=== PATIENT | female | born 1995 | race American Indian/Alaskan Native ===

== ENCOUNTER 2021-01-03 19:23 | Outpatient (CLI) | payer BC, MEDICAID ==
[2021-01-03 20:22] VITALS: BP 121/77
[2021-01-03 22:30] LABS: Bacteria,Urine 1+ /HPF (Negative); Bilirubin,Urine NEG (Negative); Blood,Urine NEG (Negative); Color,Urine Yellow (Yellow); Mucus,Urine 3+ /HPF; Protein,Urine <15 mg/dL mg/dL (Negative); Urobilinogen,Urine < 2.0 mg/dL (<2.0)
== END 2021-01-03 23:11 | disposition home or self-care (01) ==
LOC: TRG 19:23 → APU 19:32 → TRG 23:10
PROVIDERS: ATTEND Student in an Organized Health Care Education/Training Program
DX: Z34.93 Encounter for supervision of normal pregnancy, unspecified, third trimester (principal); Z3A.38 38 weeks gestation of pregnancy
CPT/HCPCS: 59025; 81001

== ENCOUNTER 2021-01-04 20:49 | Inpatient (IN) | payer MEDICAID ==
[2021-01-04] MEDS ORDERED: CARBOPROST TROMETHAMINE 250 MCG/1 ML INJ IM PRN (21:30)
[2021-01-04] MEDS ORDERED: MINERAL OIL 30 ML ORAL LIQD PO PRN (21:30)
[2021-01-04] MEDS ORDERED: LACTATED RINGERS 1,000 ML IV SCH (21:30)
[2021-01-04] MEDS ORDERED: ePHEDrine SULFATE 50 MG/1 ML INJ IV PRN (21:30)
[2021-01-04] MEDS ORDERED: TERBUTALINE 1 MG/1 ML INJ SUB-Q PRN (21:30)
[2021-01-04] MEDS ORDERED: LIDOCAINE (2%) 20 MG/1 ML VIAL 20 ML MDV INFILTRATI ONE (21:30)
[2021-01-04] MEDS ORDERED: LOPERAMIDE 2 MG CAP PO PRN (21:30)
[2021-01-04] MEDS ORDERED: AMPICILLIN/NS 2 GM/100 ML 2 GM/100 ML BAG IV ONE (21:30)
[2021-01-04] MEDS ORDERED: OXYTOCIN 10 UNIT/1 ML INJ IM PRN (21:30)
[2021-01-04] MEDS ORDERED: METHYLERGONOVINE MALEATE 0.2 MG/ML VIAL IM PRN (21:30)
[2021-01-04] MEDS ORDERED: ACETAMINOPHEN 325 MG TAB PO PRN (21:30)
[2021-01-04] MEDS ORDERED: BUTORPHANOL 2 MG/1 ML INJ IV PRN (21:30)
[2021-01-04] MEDS ORDERED: PROMETHAZINE 25 MG TAB PO PRN (21:30)
[2021-01-04] MEDS ORDERED: fentaNYL 100 MCG/2 ML INJ IV PRN (21:30)
[2021-01-04] MEDS ORDERED: NALOXONE 0.4 MG/1 ML INJ IV PRN (21:30)
[2021-01-04] MEDS ORDERED: miSOPROStol 200 MCG TAB PR PRN (21:30)
[2021-01-04] MEDS ORDERED: ONDANSETRON 4 MG/2 ML INJ IV PRN (21:30)
--- NOTE | 2021-01-04 21:44 | History and Physical Report ---
History of Present Illness Date of examination: 01/04/21 Date of admission: 01/04/21 Chief complaint: I've been having contractions since yesterday and I started bleeding today. History of present illness: Pt presents to triage with c/o contractions and vaginal bleeding. States that she was in triage on the evening of 01/03, was 1 cm and sent home. Today the contractions became stronger with vaginal bleeding. EDC Confirmation: 01/15/2021 Gestational Age: 38.3 weeks on admission Past History : 1 Term Births: 0 Premature Births: 0 Living Children: 1 Para: 0 Mult. Births: 0 Prev : 0 Aborta: 0 Elect. Ab: 0 Spont. Ab: 0 Ectopics: 0 Past Medical History: Reviewed history and no changes required: Negative Past Medical History Past Surgical History: Reviewed history and no changes required: negative Past Medical History Anesthesia Complications: negative Anemia: negative Autoimmune Disorder: negative Bleeding Disorder: negative Blood Transfusions: negative Breast Disease: negative Diabetes: negative Heart Disease: negative Hypertension: negative Hepatitis/Liver Disease: negative Kidney Disease/UTI: negative Neurologic/Epilepsy/Migraines: negative Phlebitis/Varicosities: negative Psychiatric: negative Pulmonary Disease/Asthma: negative Thyroid Disease: negative Hospitalizations: negative Surgery (Non-wildlife management professor): negative Abnormal PAP: negative ULISES Exposure: negative Infertility: negative Uterine Anomaly: negative Uterine Surgery (not C/S): negative Other Gynecologic Problems: negative Family Hx: None Social Hx: Single FOC: somewhat supportive Infection History Hx of STD: chlamydia HIV Risk Eval: no Hepatitis B Risk Eval: low risk Personal hx. of genital herpes: no Partner hx. of genital herpes: no Rash, Viral, or Febrile illness since last LMP? no Varicella/Chicken Pox Status: No Genetic History Congenital Heart Defect: Mom: no Dad: no Tatiana Disease: Mom: no Dad: no Thalassemia Mom: no Dad: no Neural Tube Defect Mom: no Dad: no Down's Syndrome Mom: no Dad: no Jose-Sachs Mom: no Dad: no Sickle Cell Disease/Trait Mom: no Dad: no Hemophilia Mom: no Dad: no Muscular Dystrophy Mom: no Dad: no Cystic Fibrosis Mom: no Dad: no [place] Chorea Mom: no Dad: no Mental Retardation Mom: no Dad: no Fragile X Mom: no Dad: no Other Genetic/Chromosomal Disorder Mom: no Dad: no Child w/other defect Mom: no Dad: no Enviromental Exposures Xray Exposure: no Medication, drug, or alcohol use since LMP: no Chemical/Other Exposure: no Exposure to Cat Liter: no Hx of Parvovirus (Fifth Disease): no Occupational Exposure to Children: none Active Medications (reviewed today): None Current Allergies (reviewed today): No known allergies Past History Past Medical History: no pertinent history Past Surgical History: no surgical history Family/Genetic History: none Social history: no significant social history - Obstetrical History Expected Date of Delivery: 01/15/21 Actual Gestation: 38 Week(s) 4 Day(s) : 1 Para: 0 Hx # Term Pregnancies: 0 Number of Pregnancies: 0 Spontaneous Abortions: 0 Induced : 0 Number of Living Children: 0 Medications and Allergies Allergies Allergy/AdvReac Type Severity Reaction Status Date / Time No Known Allergies Allergy Verified 01/04/21 21:40 Home Medications Medication Instructions Recorded Confirmed Last Taken Type Ferrous Sulfate [Feosol 325 MG tab] 325 mg PO BID #60 tablet 01/05/21 Unknown Rx Ibuprofen [Motrin] 800 mg PO TID PRN #30 tablet 01/05/21 Unknown Rx Lidocain2.5%/Prilocai2.5% [Emla] 5 gm TP ONCE #1 tube 01/05/21 Unknown Rx oxyCODONE /ACETAMINOPHEN [Percocet 1 - 2 tab PO Q6HR PRN #20 tablet 01/05/21 Unknown Rx 5/325 mg] Active Meds: Active Medications Acetaminophen (Acetaminophen 325 Mg Tab) 1,000 mg PO Q6H PRN PRN Reason: Pain, Mild (1-3) Butorphanol Tartrate (Butorphanol 2 Mg/1 Ml Inj) 1 mg IV Q2H PRN PRN Reason: Pain, Moderate(4-6) LABOR PAIN Carboprost Tromethamine (Carboprost Tromethamine 250 Mcg/1 Ml Inj) 250 mcg IM ONCE PRN PRN Reason: Uterine Bleeding Ephedrine Sulfate (Ephedrine Sulfate 50 Mg/1 Ml Inj) 10 mg IV Q2M PRN PRN Reason: Hypotension Fentanyl (Fentanyl 100 Mcg/2 Ml Inj) 100 mcg IV Q2H PRN PRN Reason: Pain,Severe (7-10) LABOR PAIN Oxytocin/Sodium Chloride (Pitocin/Ns 30 Unit/500ml) 30 units in 500 mls @ 2 mls/hr IV TITR LEANDRO; Protocol Lactated Ringer's (Lactated Ringers) 1,000 mls @ 125 mls/hr IV DIRECT LEANDRO Oxytocin/Sodium Chloride (Pitocin/Ns 30 Unit/500ml) 30 units in 500 mls @ 40 mls/hr IV TITR LEANDRO; Protocol Ampicillin Sodium (Ampicillin/Ns 2 Gm/100 Ml) 2 gm in 100 mls @ 100 mls/hr IV ONCE ONE; Protocol Stop: 01/04/21 22:29 Lidocaine (Lidocaine (2%) 20 Mg/1 Ml Vial 20 Ml Mdv) 20 ml INFILTRATI ONCE ONE Stop: 01/04/21 21:31 Loperamide HCl (Loperamide 2 Mg Cap) 2 mg PO ONCE PRN PRN Reason: give with Hemabate Methylergonovine Maleate (Methylergonovine Maleate 0.2 Mg/Ml Vial) 0.2 mg IM ONCE PRN PRN Reason: Uterine Bleeding Mineral Oil (Mineral Oil 30 Ml Oral Liqd) 30 ml PO QHS PRN PRN Reason: Constipation Misoprostol (Misoprostol 200 Mcg Tab) 800 mcg AL ONCE PRN PRN Reason: Uterine Bleeding Naloxone HCl (Naloxone 0.4 Mg/1 Ml Inj) 0.1 mg IV Q2MIN PRN PRN Reason: Res Rate </= 8 or 02 SAT < 92% Ondansetron HCl (Ondansetron 4 Mg/2 Ml Inj) 4 mg IV Q8H PRN PRN Reason: Nausea And Vomiting Oxytocin (Oxytocin 10 Unit/1 Ml Inj) 10 unit IM ONCE PRN PRN Reason: Uterine Bleeding Promethazine HCl (Promethazine 25 Mg Tab) 25 mg PO Q6H PRN PRN Reason: Nausea And Vomiting Terbutaline Sulfate (Terbutaline 1 Mg/1 Ml Inj) 0.25 mg SUB-Q ONCE PRN PRN Reason: Hyperstimulation/Hypertonicity Review of Systems All systems: negative - Vital Signs Vital signs: Vital Signs Pulse BP 97 H 126/80 01/04/21 21:08 01/04/21 21:08 Temp Pulse Resp BP Pulse Ox 97.9 F 99 H 126/80 98 01/04/21 21:09 01/04/21 21:36 01/04/21 21:09 01/04/21 21:36 Multiple decelerations noted in triage down into the 60 to low 100's with contractions. There was recovery to the 160's, but with minimal variability. Pt states that she feels dehydrated. When asked about last eating and drinking, patient states "awhile ago". IV fluid bolus ordered. Will continue to monitor heart rate through EFM. Informed patient and her mother, if heart rate decelerations continue, will consult with Dr. Mccarthy and have to proceed with a . We also discussed that her progress in labor would be monitor closely. Pt and her mother verbalized understanding. - Physical Exam Breasts: Positive: deferred Cardiovascular: Regular rate Lungs: Positive: Normal air movement Abdomen: Positive: normal appearance Genitourinary (Female): Positive: normal external genitalia, normal perenium Vulva: both: normal Uterus: Positive: enlarged (Appropriate for 38.3 weeks gestation.) Extremities: Positive: normal - Obstetrical FHR: category 2 Uterine Contraction Monitor Mode: External Cervical Dilatation: 5 (Small amount of blood show noted on examing glove.) Cervical Effacement Percentage: 90 station: 1- Uterine Contraction Pattern: Regular Uterine Tone Measurement Phase: Resting Uterine Contraction Intensity: Moderate Results Result Diagrams: 01/04/21 21:35 All other labs normal. GBS POSITIVE O POSITIVE HIV NEGATIVE HEP B NEGATIVE RUBELLA IMMUNE RPR NON REACTIVE Assessment and Plan A: 25 y.o. @ 38.3 wks on admission, labor. Cervical exam 590/-1. Category 2 fet al monitor tracing. - Patient Problems (1) with 38 completed weeks gestation Current Visit: Yes Status: Acute Plan to address problem: Admit to labor and delivery. Initiate IV and draw admission labs. IV fluid bolus for epidural placement. Monitor patient's progress in labor. (2) GBS (group B streptococcus) infection Current Visit: Yes Status: Acute Plan to address problem: Antibiotics ordered during admission. (3) Non-reassuring electronic monitoring tracing Current Visit: Yes Status: Acute Plan to address problem: Will continue to monitor through EFM and response to labor.
[2021-01-04] MEDS ORDERED: LACTATED RINGERS 1,000 ML ONE ×2 (21:46→23:34)
[2021-01-04] MEDS ORDERED: OXYTOCIN DRIP 30 UNITS/500 ML BAG IV SCH ×2 (22:00)
[2021-01-04 22:17] LABS: Hemoglobin 10.7 gm/dl (10.1-14.3); Mean Corpuscular HGB Conc 34 % (30-34); Mean Corpuscular Volume 84 fl (79-97); Platelet Count 161 K/mm3 (140-440); Red Blood Count 3.81 M/mm3 (3.65-5.03); Red Cell Distribution Width 16.1 % (13.2-15.2)
[2021-01-04] MEDS ORDERED: BICITRA ORAL LIQD 30ML PO ONE (22:21)
[2021-01-04] MEDS ORDERED: METOCLOPRAMIDE 10 MG/2 ML INJ IV ONE (22:21)
[2021-01-04] MEDS ORDERED: FAMOTIDINE 20 MG/2 ML INJ IV ONE (22:21)
--- NOTE | 2021-01-04 22:43 | Anesthesia Day of Surgery ---
Anesthesia Day of Surgery - Day of Surgery Patient Examined: Yes Patient H&P Reviewed: Yes Patient is NPO: No ([id number]) Beta Blockers: No Cardiac Clearance: No Pulmonary Clearance: No Ezio's Test: Negative
--- NOTE | 2021-01-04 22:45 | Anesthesia Consultation ---
Anesthesia Consult and Med Hx Date of service: 01/04/21 - Airway Anesthetic Teeth Evaluation: Poor ROM Head & Neck: Adequate Mental/Hyoid Distance: Adequate Mallampati Class: Class II Intubation Access Assessment: Good - Pulmonary Exam CTA: Yes - Cardiac Exam Cardiac Exam: RRR - Pre-Operative Health Status ASA Pre-Surgery Classification: ASA3, Emergency Proposed Anesthetic Plan: General, Spinal - Pulmonary Hx Smoking: Yes (stop 38weeks ago) Hx Asthma: No Hx Respiratory Symptoms: No SOB: No COPD: No Home Oxygen Therapy: No Hx Pneumonia: No Hx Sleep Apnea: No - Cardiovascular System Hx Hypertension: No Hx Coronary Artery Disease: No Hx Heart Attack/AMI: No Hx Angina: No Hx Percutaneous Transluminal Coronary Angioplasty (PTCA): No Hx Cardia Arrhythmia: No Hx Pacemaker: No Hx Internal Defibrillator: No Hx Valvular Heart Disease: No Hx Heart Murmur: No Hx Peripheral Vascular Disease: No - Central Nervous System Hx Neuromuscular Disorder: No Hx Seizures: No CVA: No Hx Back Pain: Yes Hx Psychiatric Problems: No - Gastrointestinal Hx Ulcer: No Hx Gastroesophageal Reflux Disease: Yes - Endocrine Hx Renal Disease: No Hx End Stage Renal Disease: No Hx Cirrhosis: No Hx Liver Disease: No Hx Insulin Dependent Diabetes: No Hx Non-Insulin Dependent Diabetes: No Hx Thyroid Disease: No Hx Hypothyroidism: No Hx Hyperthyroidism: No - Hematic Hx Anemia: No Hx Sickle Cell Disease: No - Other Systems Hx Alcohol Use: No Hx Substance Use: No Hx Cancer: No Hx Obesity: Yes
[2021-01-04] MEDS ORDERED: ONDANSETRON 4 MG/2 ML INJ ONE ×2 (22:58)
[2021-01-04] MEDS ORDERED: ceFAZolin/Water 2 GM/20 ML 2 GM/20 ML SYRINGE IV NR (23:00)
[2021-01-04] MEDS ORDERED: SODIUM CHLORIDE 0.9% IRR 1,500 ML BOTTLE IR ONE (23:44)
[2021-01-04] MEDS ORDERED: WATER FOR IRRIG STERILE 1,500 ML BOTTLE IR ONE (23:44)
[2021-01-04] MEDS ORDERED: ceFAZolin/STERILE WATER 2 GM/20 ML SYRINGE IV ONE (23:44)
[2021-01-04] MEDS ORDERED: KETOROLAC 30 MG/1 ML INJ ONE (23:56)
[2021-01-04] MEDS ORDERED: BUPIVACAINE/PF (0.25%) 2.5 MG/ML 30 ML VIAL INFILTRATI ONE ×2 (23:57)
[2021-01-04] MEDS ORDERED: dexAMETHasone 20 MG/5 ML VIAL ONE (23:57)
--- NOTE | 2021-01-05 00:39 | Operative Report ---
Operative Report Operative Report: Date of procedure: January 04, 2021 Pre-operative diagnosis: Intrauterine at 38 weeks with active labor and repetitive deep variable decelerations with late component remote from vaginal delivery Post-operative diagnosis: Same plus meconium stained fluid and leiomyomata Procedure name(s): Primary low-transverse section Surgeon: Erick Mccarthy MD Railroad Conductor: Sherri Dobson, certified nurse staff nurse midwife Anesthesia: Spinal EBL: QBL= 661 cc Complications: None Findings: Normal fallopian tubes and ovaries bilaterally uterus with small myomas. Male weight 5 pounds 9 ounces Apgars 7 at 1 minute and 8 at 5 minutes. Had meconium stained fluid Specimen(s): None Indication: Indication for section discussed with patient and mother. Patient informed the risks of the surgery include bleeding possibly bleeding heavy enough to require blood transfusion, infection possible damage to bowel bladder ureter. All questions answered. Patient agrees to proceed Procedure: The patient was brought to the operating room. Spinal anesthesia was placed without any complications. She was then placed in left lateral tilt. Prepped and draped in the usual sterile manner. After testing for adequate anesthesia level, a Pfannenstiel incision was made. This incision was taken down to the fascia. The fascia was then nicked in the midline. This incision was extended out laterally with Contreras scissors. The fascia was then sharply and bluntly from the underlying rectus muscles. The rectus muscles were bluntly and sharply . The peritoneum was then entered with the can bander operator's fingers. This incision was spread vertically with care not to damage the bladder below. The Stefan self-retaining tractor was then placed without any difficulty. The bladder flap was then formed sharply and bluntly with Metzenbaum scissors. A transverse incision was made in lower uterine segment. This incision was extended laterally with the operators fingers. The amniotic sac was then entered bluntly with the can bander operator's fingers. The infant was delivered from the vertex position. Bulb suction on the mother's abdomen. Cord was double clamped and cut. The infant was then passed to the nursery personnel who were in attendance. The above scores were given by the nursery personnel. The placenta was then bluntly removed. The uterus was then externalized and wiped clean the remaining products. The uterine incision was closed in layers. The first incision was closed in a locking manner using 0 Vicryl. This was followed by imbricating stitch also with 0 Vicryl. This closure was hemostatic. The bladder flap was copiously irrigated and found to be hemostatic. The pelvis was copiously irrigated and found to be hemostatic. The uterus was then placed back to the patient's abdomen. The retractors were removed. The rectus muscles were inspected and found to be hemostatic. The fascia was then closed in a running manner using 0 Vicryl. This incision was hemostatic irrigation Bovie. The skin was reapproximated with 4-0 Vicryl subcuticularly. The patient tolerated procedure well. Her urine was clear. The was admitted to the well baby nursery. The patient was accompanied to recovery room in good condition. Instrument count correct times 3.
--- NOTE | 2021-01-05 00:46 | Progress Note ---
Spinal Anesthesia Block - Spinal Anesthesia Block Start Time: 23:11 Stop Time: 23:35 Performed by:: JACEK SHOER Procedure: Patient is requesting a laboring epidural for laboring pain. Patient IDed, H&P reviewed, all questions and concerns were answered, and consent was signed. Timeout was performed at bedside. Patient in sitting position. Sterile prep and drape was performed. [5] ml of 1% lidocaine skin wheal at L[3]- L [4]. 18-gauge Touhy epidural needle was advanced to loss of resistance with air technique to cm. Negative CSF negative blood via Tuohy needle. #27g Spinal needle clear, free flowing CSF, Bupivacaine .75% (10mg) and Pecedex 10 mcg. Epidural catheter advanced to [12] centimeters. Sterile dressing applied. Patient tolerated procedure.
[2021-01-05] MEDS ORDERED: NALOXONE 0.4 MG/1 ML INJ IV PRN ×2 (00:47→02:59)
[2021-01-05] MEDS ORDERED: HYDROmorphone 1 MG/1 ML INJ IV PRN ×2 (00:47)
[2021-01-05] MEDS ORDERED: ONDANSETRON 4 MG/2 ML INJ IV PRN ×2 (00:47→02:59)
--- NOTE | 2021-01-05 00:47 | Progress Note ---
Spinal Anesthesia Block - Spinal Anesthesia Block Start Time: 00:41 Stop Time: 00:43 Performed by:: JACEK SHORE Procedure: Patient consented for TAP block for post surgical pain management. Patient identified, monitors placed, and time out performed. TAP identified bilaterally via ultrasound. Skin prepped bilaterally with [chlorhexidine] and [22g stimuplex] needle advanced to the TAP. [Marcaine 0.25% 35ml] injected under ultrasound guidance on the [left] side. [Marcaine 0.25% 35ml] injected under ultrasound guidance on the [right] side. Negative aspiration every 5mL, No change in heart rate or rhythm. Patient tolerated the procedure well. No apparent complications seen.
[2021-01-05] MEDS ORDERED: DEXTROSE ORAL GEL 0.5GM/1ML NICU BC ONE (02:00)
[2021-01-05] MEDS ORDERED: WITCH HAZEL/ GLYCERIN PAD TP PRN (02:59)
[2021-01-05] MEDS ORDERED: D5W/LACTATED RINGERS 1,000 ML IV SCH (02:59)
[2021-01-05] MEDS ORDERED: MAGNESIUM HYDROXIDE (MOM) ORAL LIQD UDC PO PRN (02:59)
[2021-01-05] MEDS ORDERED: HYDROcodone/ACETAMINOPHEN 5-325 MG TAB PO PRN (02:59)
[2021-01-05] MEDS ORDERED: LANOLIN/ZINC/DIMETHICONE (LANSINOH) 7 GM TP PRN (02:59)
[2021-01-05] MEDS ORDERED: OXYTOCIN DRIP 30 UNITS/500 ML BAG IV SCH (02:59)
--- NOTE | 2021-01-05 06:50 | Progress Note ---
Assessment and Plan - Patient Problems (1) delivery, delivered, current hospitalization Onset Date: ~01/04/21 Current Visit: Yes Status: Acute Plan to address problem: Pt resting comfortably No c/o voiced. Anxious to go to NICU to see her son. VSS FF below umb Lochia small Incision D&I H&H pending Doing well s/p c/s P: continue pathway Advance diet and activity as tolerated. Subjective - Subjective Date of service: 01/05/21 (Pt in good spirits No c/o voiced) Principal diagnosis: 8hr s/p Primary section Patient reports: voiding normally (clear yellow urine to BSB), pain well controlled : in NICU Objective - Vital Signs Latest vital signs: Vital Signs Temp Pulse Resp BP BP Pulse Ox Pulse Ox 01/05/21 06:25 98 01/05/21 03:50 98.4 F 77 18 125/82 98 98 01/05/21 01:45 98.0 F 77 14 138/83 100 01/05/21 01:30 71 14 127/86 100 01/05/21 01:15 77 14 125/80 100 01/05/21 01:00 76 12 115/83 99 01/05/21 00:55 74 12 114/80 100 01/05/21 00:50 76 14 119/75 96 01/05/21 00:45 80 13 114/79 100 01/05/21 00:40 76 15 109/71 100 01/05/21 00:37 97.5 F L 01/04/21 22:49 102 H 100 01/04/21 22:44 100 H 98 01/04/21 22:39 104 H 99 01/04/21 22:34 104 H 100 01/04/21 22:26 100 H 100 01/04/21 22:21 112 H 100 01/04/21 22:16 95 H 99 01/04/21 22:11 97 H 100 01/04/21 22:06 109 H 100 01/04/21 22:01 98 H 99 01/04/21 21:56 90 99 01/04/21 21:51 110 H 100 01/04/21 21:46 109 H 100 01/04/21 21:41 98 H 99 01/04/21 21:36 99 H 98 01/04/21 21:26 108 H 99 01/04/21 21:21 108 H 98 01/04/21 21:16 96 H 97 01/04/21 21:09 97.9 F 97 H 126/80 01/04/21 21:08 97 H 126/80 Intake and Output 01/04/21 01/04/21 01/05/21 14:59 22:59 06:59 Other: Weight 191 lb Patient Weight 01/05/21 06:59 Weight 191 lb - Exam Breasts: Present: normal Cardiovascular: Present: Regular rate Lungs: Present: Normal air movement Abdomen: Present: normal appearance, soft, normal bowel sounds Uterus: Present: normal, fundal height below umbilicus Extremities: Present: normal Deep Tendon Reflex Grade: Normal +2 Incision: Present: normal, dry, intact - Labs Labs: Abnormal lab results 01/04/21 Range/Units 21:35 RDW 16.1 H (13.2-15.2) %
[2021-01-05] MEDS: ceFAZolin/NS 1 GM/50 ML 1 GM/50 ML BAG IV SCH ×2 (07:22→16:20)
[2021-01-05] MEDS ORDERED: FERROUS SULFATE 325 MG TAB PO SCH (10:00)
[2021-01-05] MEDS ORDERED: PRENATAL VIT27-FE FUMARATE-FOLIC ACID VIT TAB PO SCH (10:00)
[2021-01-05] MEDS: KETOROLAC 30 MG/1 ML INJ IV SCH ×2 (10:58→16:19)
--- NOTE | 2021-01-05 12:15 | Post Anesthesia Evaluation ---
- Post Anesthesia Evaluation Patient Participated: Yes Airway Patent: Yes Stable Respiratory Function: Yes Nausea/Vomiting: No Temp > 96.8F: Yes Pain Manageable: Yes Adequeate Hydration: Yes Anesthesia Complications: No Block Receding Appropriately: Yes Patient on Ventilator: No
[2021-01-05] MEDS ORDERED: SIMETHICONE 80 MG CHEW TAB PO PRN (16:11)
[2021-01-05 16:19] LABS: Hematocrit 28.9 % (30.3-42.9); Hemoglobin 9.5 gm/dl (10.1-14.3)
[2021-01-06] MEDS ORDERED: IBUPROFEN 600 MG TAB PO PRN (00:39)
--- NOTE | 2021-01-06 08:21 | Progress Note ---
Assessment and Plan A: 25 y.o. s/p primary . Doing well . P: Continue with care. Advance diet as tolerated. Encourage ambulation. Discharge home on 01/07/21. Subjective - Subjective Date of service: 01/06/21 (Pt not ready for discharge home yet. ) Principal diagnosis: POD #1 s/p Primary section Patient reports: appetite normal, voiding normally, pain well controlled, flatus, ambulating normally : doing well, in NICU Objective - Vital Signs Latest vital signs: Vital Signs Temp Pulse Resp BP Pulse Ox Pulse Ox 01/06/21 06:08 98 01/06/21 03:40 98 01/06/21 02:00 98 01/06/21 00:45 98.2 F 89 20 105/54 98 01/05/21 23:50 98 01/05/21 22:25 97 01/05/21 20:20 97 01/05/21 15:36 98.0 F 84 18 109/70 98 01/05/21 09:20 97 Intake and Output 01/05/21 01/06/21 01/06/21 22:59 06:59 14:59 Intake Total 360 600 Output Total 400 250 Balance -40 350 Intake: Oral 360 240 Intake, Free Water 360 Output: Urine 400 250 Void 400 250 Other: Total, Intake Amount 360 240 Total, Output Amount 200 250 # Voids Void 1 - Exam Narrative Exam: Pt is doing well today. Sitting up in chair upon entering room. We discussed increasing her ambulation. States that she has some pain in the incision area and her lower abdomen. Pain medication adjusted. She also has some c/o "gas pain". Explained that this is not uncommon in the period after a c- section and that Mylicon had been prescribed. We also discussed that ambulation will help with releasing flatus. Pt verbalized understanding. Breasts: Present: deferred Cardiovascular: Present: Regular rate Lungs: Present: Normal air movement Abdomen: Present: normal appearance, soft Uterus: Present: normal, firm Extremities: Present: normal Incision: Present: normal, dry, intact, other (No drainage or s/sx of infection noted.) - Labs Labs: Abnormal lab results 01/05/21 Range/Units 15:41 Hgb 9.5 L (10.1-14.3) gm/dl Hct 28.9 L (30.3-42.9) %
[2021-01-06] MEDS: HYDROcodone/ACETAMINOPHEN 5-325 MG TAB PO PRN ×2 (09:25→19:27)
[2021-01-06] MEDS ORDERED: IBUPROFEN 800 MG TAB PO PRN (18:00)
--- NOTE | 2021-01-07 08:31 | Discharge Summary ---
Providers - Providers Date of Admission: 01/05/21 02:59 Date of discharge: 01/07/21 Attending physician: AARON NOGUERA 01/05/21 02:59 Consult to Custom Shop Worker [CONS] Routine Reason For Exam: Primary care physician: RENZO SHARPE MD Hospitalization Reason for admission: Labor Condition: Good Pertinent studies: postop H&H 9.5/28.9, asymptomatic anemia from acute blood loss Procedures: primary c/s Hospital course: uncomplicated c/s and postop course Disposition: 01 HOME / SELF CARE / HOMELESS Final Discharge Diagnosis (Prints w/discharge instructions): postop c/s Time spent for discharge: 20 - Discharge Diagnoses (1) delivery, delivered, current hospitalization Status: Acute Core Measure Documentation - Palliative Care Palliative Care/ Comfort Measures: Not Applicable - Core Measures Any of the following diagnoses?: none Exam - Constitutional Vitals: Temp Pulse Resp BP Pulse Ox 97.9 F 91 H 20 113/75 98 01/07/21 01:10 01/07/21 01:10 01/07/21 01:10 01/07/21 01:10 01/07/21 05:21 General appearance: Present: no acute distress, well-nourished - EENT Eyes: Present: PERRL ENT: hearing intact, clear oral mucosa - Neck Neck: Present: supple, normal ROM - Respiratory Respiratory effort: normal Respiratory: bilateral: CTA - Cardiovascular Rhythm: regular Heart Sounds: Absent: rub, click - Extremities Extremities: No edema Peripheral Pulses: within normal limits - Abdominal General gastrointestinal: Present: soft, non-tender, non-distended, normal bowel sounds Female genitourinary: Present: normal - Integumentary Integumentary: Present: clear, warm, dry - Musculoskeletal Musculoskeletal: gait normal, strength equal bilaterally - Psychiatric Psychiatric: appropriate mood/affect, intact judgment & insight - Neurologic Neurologic: CNII-XII intact, moves all extremities - Additional findings Additional findings: incision D&I, lochia scant, fudus firm Plan Activity: advance as tolerated Diet: regular Wound: open to air, keep clean and dry Follow up with: RENZO SHARPE MD [Primary Care Provider] - 7 Days (Congratulations! Please call [phone] to schedule your incision check in 1 week and you son's circumcision once he is released from the NICU. Bring EMLA cream to your son's a ppointment and wait for further teaching. Call with any questions or concerns. ) Prescriptions: Lidocain2.5%/Prilocai2.5% [Emla] 5 gm TP ONCE #1 tube Ferrous Sulfate [Feosol 325 MG tab] 325 mg PO BID #60 tablet Ibuprofen [Motrin] 800 mg PO TID PRN #30 tablet PRN Reason: Pain oxyCODONE /ACETAMINOPHEN [Percocet 5/325 mg] 1 - 2 tab PO Q6HR PRN #20 tablet PRN Reason: Pain
[2021-01-07 08:34] VITALS: BP 117/79
== END 2021-01-07 16:21 | disposition home or self-care (01) | DRG 765 ==
LOC: TRG 20:49 → APU 20:51 → TRG 21:30 → APU 21:30 → OBSVTOIN 01-05 02:59 → OB 01-05 03:40
PROVIDERS: ADMIT Obstetrics & Gynecology; ATTEND Obstetrics & Gynecology
PROC: 10D00Z1 Extraction of Products of Conception, Low, Open Approach (ICD-10-PCS; principal; 2021-01-05)
PROC: 3E0T3BZ Introduction of Anesthetic Agent into Peripheral Nerves and Plexi, Percutaneous Approach (ICD-10-PCS; 2021-01-05)
DX: O76 Abnormality in fetal heart rate and rhythm complicating labor and delivery (principal); O98.82 Other maternal infectious and parasitic diseases complicating childbirth; D62 Acute posthemorrhagic anemia; Z3A.38 38 weeks gestation of pregnancy; Z37.0 Single live birth; B95.1 Streptococcus, group B, as the cause of diseases classified elsewhere; Z87.891 Personal history of nicotine dependence; O99.62 Diseases of the digestive system complicating childbirth; O99.214 Obesity complicating childbirth; K21.9 Gastro-esophageal reflux disease without esophagitis; O77.0 Labor and delivery complicated by meconium in amniotic fluid; O34.13 Maternal care for benign tumor of corpus uteri, third trimester; D25.9 Leiomyoma of uterus, unspecified; O90.81 Anemia of the puerperium; Z20.822 Contact with and (suspected) exposure to COVID-19
CPT/HCPCS: 36415; 59025; 81001; 85014; 85018; 85027; 86592; 86803; 86850; 86900; 86901; 96360; 99211; G0378; G0463; J0690; J1100; J1885; J2405; J2765; J3490; J7120; U0003